=== PATIENT | male | born 1975 | race Caucasian/White ===

== ENCOUNTER 2018-11-05 12:01 | Day surgery (SDC) | payer BC ==
[~2018-11-05 12:01] MED LIST: Buffered Lidocaine 0.9% SYRIN* 5 ML/SYR SYRINGE INTRADERM ONE
[2018-11-05] MEDS ORDERED: ceFAZolin 2 GM PREMIX in ORs 2 GM/50 ML BAG IVPB ONE (13:05)
[2018-11-05] MEDS ORDERED: Bupivacaine 0.25% SDV PF* 10 ML VIAL INJ ONE (14:06)
[2018-11-05] MEDS ORDERED: Sodium Citrate/Citric Acid* 15 ML UDC ONE (14:45)
[2018-11-05] MEDS ORDERED: Midazolam* 1 MG/ML 2 ML VIAL (2 MG) ONE (14:48)
[2018-11-05] MEDS ORDERED: fentaNYL* 50 MCG/ML 2 ML VIAL (100 MCG VIAL) ONE (14:48)
[2018-11-05] MEDS ORDERED: Lidocaine 2% PF * 5 ML VIAL ONE (14:48)
[2018-11-05] MEDS ORDERED: Propofol* 10 MG/ML 20 ML BTL ONE (14:48)
[2018-11-05] MEDS ORDERED: fentaNYL* 50 MCG/ML 2 ML VIAL (100 MCG VIAL) IV PRN (15:35)
[2018-11-05] MEDS ORDERED: Naloxone* 0.4 MG/ML 1 ML VIAL IV PRN (15:35)
[2018-11-05] MEDS ORDERED: Ondansetron INJ* 2 MG/ML VIAL IV PRN (15:35)
[2018-11-05] MEDS ORDERED: Dexamethasone IV* 4 MG/ML 1 ML (4 MG) ONE (15:36)
[2018-11-05] MEDS ORDERED: Metoprolol Succinate XL TAB* 25 MG PO ONE (17:00)
[2018-11-05 17:02] VITALS: BP 123/77
--- NOTE | 2018-11-06 04:38 | OP ---
DATE OF OPERATION: 11/05/18 - [facility] DATE OF : 75 SURGEON: Kamlesh Sheldon MD SPECIAL EDUCATION RESOURCE TEACHER: SUMEET Gasca. An tourist information assistant was needed for the procedure to aid in positioning of the arm and retraction. ANESTHESIOLOGIST: Dr. Carvalho. ANESTHESIA: General. PRE-OP DIAGNOSIS: 1. Left cubital tunnel syndrome. 2. Left carpal tunnel syndrome. POST-OP DIAGNOSIS: 1. Left cubital tunnel syndrome. 2. Left carpal tunnel syndrome. OPERATIVE PROCEDURE: 1. Left in situ cubital tunnel release. 2. Left carpal tunnel release. INDICATIONS: Juan has pretty significant pain related to the ulnar nerve. This was confirmed on electrodiagnostic studies as well as here patient appearing carpal tunnel on this study. We talked about risks and benefits and he had wanted to proceed with surgery. He understands there is a risk he would still have pain and discomfort despite surgery. ESTIMATED BLOOD LOSS: 2 mL. COMPLICATIONS: None. FINDINGS: See above and below. DESCRIPTION OF PROCEDURE: Juan was seen in the preoperative holding area. The correct side, site and procedure were identified. We came back to the operating room. The arm was prepped and draped in the usual fashion. A time- out was performed. The arm was exsanguinated with the Esmarch and the tourniquet inflated to 250 mmHg. I made a 2 to 3 cm incision in the proximal palm in the typical location for an open carpal tunnel release. Dissection was carried down through the subcutaneous tissue and herrera fascia. The transverse carpal ligament was released just off the radial aspect of the hook of the hamate. The release just carried out from distal to proximal. When I got proximal, I released the subcutaneous tissue and retracted that with a Vicky retractor and then the remainder of the transverse carpal ligament and distal antebrachial fascia was released with the tenotomy scissors under direct visualization. The decompression was then checked and was looking good proximally and distally so we irrigated out the wound. The skin was closed with 4-0 nylon suture. The arm was then abducted and externally rotated. I began by making a curvilinear incisions centered over Bertrand's ligament. Dissection was carried down through the subcutaneous tissue. The total incision was 8 cm. The medial antebrachial cutaneous nerve was identified proximally and protected throughout the procedure. I crossed to more posterior position actually fairly proximally. The full thickness flaps were raised off of the fascia and off of Bertrand's ligament. I then began decompression just proximal to the cubital tunnel with the fascia overlying the ulnar nerve was opened up. The release was carried out proximally past the arcade of [place]. I then came distally and released Bertrand's ligament, then the superficial FCU fascia followed by splitting the two heads of the FCU and then releasing the subfascial layer. The motor branches of the ulnar nerve were identified and protected. The nerve was then checked for stability throughout full range of motion. There was absolutely no subluxation, so I again checked for hemostasis with the Bovie cautery. The subcutaneous tissue was then reapproximated with a couple of 3-0 Vicryl sutures and the skin was closed with 3-0 Monocryl and Steri-Strips. A 0.25% plain Marcaine was then infiltrated all around both operative areas. Soft dressings were applied including couple of ABDs at the elbow for some compression. Tourniquet was deflated and he was taken to the recovery room in stable condition. [id number]/[facility] #: [id number] VICKY
== END 2018-11-05 17:22 | disposition home or self-care (01) ==
LOC: OR 12:01
PROVIDERS: ATTEND Orthopaedic Surgery Hand Surgery
DX: G56.22 Lesion of ulnar nerve, left upper limb (principal); G56.02 Carpal tunnel syndrome, left upper limb; I11.9 Hypertensive heart disease without heart failure; M19.90 Unspecified osteoarthritis, unspecified site; K21.9 Gastro-esophageal reflux disease without esophagitis; F17.210 Nicotine dependence, cigarettes, uncomplicated
CPT/HCPCS: A9270-GY; J0690; J1100; J2250; J2704; J3010; J3490

== ENCOUNTER 2019-05-06 06:40 | Day surgery (SDC) | payer BC ==
[~2019-05-06 06:40] MED LIST changes: -Buffered Lidocaine 0.9% SYRIN* 5 ML/SYR SYRINGE INTRADERM ONE; +Buffered Lidocaine 1% SYRIN* 1 ML/SYRINGE INTRADERM ONE; +Famotidine IV* 10 MG/ML 2 ML (20 mg) IV ONE; +Lactated Ringers 1000 ML Bag* 1,000 ML IV SCH
[2019-05-06] MEDS ORDERED: Famotidine IV* 10 MG/ML 2 ML (20 mg) ONE (07:07)
[2019-05-06] MEDS ORDERED: ceFAZolin 2 GM PREMIX in ORs 2 GM/50 ML BAG ONE (07:07)
[2019-05-06] MEDS ORDERED: Bupivacaine 0.25% SDV PF* 10 ML VIAL INJ ONE (07:50)
[2019-05-06] MEDS ORDERED: fentaNYL* 50 MCG/ML 2 ML VIAL (100 MCG VIAL) ONE (10:08)
[2019-05-06] MEDS ORDERED: Midazolam* 1 MG/ML 5 ML VIAL (5 MG) ONE (10:08)
[2019-05-06] MEDS ORDERED: Lidocaine 2% PF * 5 ML VIAL ONE (11:15)
[2019-05-06] MEDS ORDERED: Ketorolac INJ* 30 MG/ML 1 ML VIAL ONE (11:15)
[2019-05-06] MEDS ORDERED: Ondansetron INJ* 2 MG/ML VIAL ONE (11:15)
[2019-05-06] MEDS ORDERED: Propofol* 10 MG/ML 20 ML BTL ONE (11:15)
[2019-05-06] MEDS ORDERED: DiMENhydriNATE IV* 50 MG/ML VIAL ONE (11:15)
[2019-05-06] MEDS ORDERED: Dexamethasone IV* 4 MG/ML 1 ML (4 MG) ONE (11:15)
[2019-05-06] MEDS ORDERED: oxyCODONE TAB* 5 MG TAB PO PRN (11:47)
[2019-05-06] MEDS ORDERED: DiMENhydriNATE IV* 50 MG/ML VIAL IV PUSH PRN (11:47)
[2019-05-06] MEDS ORDERED: HYDROmorphone INJ1* 1 MG/ML SYRINGE IV PRN (11:47)
[2019-05-06] MEDS ORDERED: Naloxone* 0.4 MG/ML 1 ML VIAL IV PRN (11:47)
[2019-05-06] MEDS ORDERED: Acetaminophen TAB* 325 MG PO PRN (11:47)
[2019-05-06 12:32] VITALS: BP 132/88
--- NOTE | 2019-05-06 12:38 | OP ---
DATE OF OPERATION: 05/06/19 - [facility] DATE OF : 75 SURGEON: Kamlesh Sheldon MD. ASSEMBLY LINE DRIVER: SUMEET Gasca. ANESTHESIOLOGIST: Dr. Walker. ANESTHESIA: General. PRE-OP DIAGNOSIS: Left cubital tunnel syndrome. POST-OP DIAGNOSIS: Left cubital tunnel syndrome. OPERATIVE PROCEDURE: Left in situ cubital tunnel release. INDICATIONS: Juan has done very well with the right-sided carpal and cubital tunnel releases. He is having problems on the left only in the ring and small fingers. We talked about the risk and benefits and he wanted to proceed with cubital tunnel release. ESTIMATED BLOOD LOSS: 2 mL. COMPLICATIONS: None. FINDINGS: See above and below. DESCRIPTION OF PROCEDURE: Juan was seen in the preoperative holding area. The correct site, side, and procedure were identified. We came back to the operating room where the arm was prepped and draped in the usual fashion and time-out was performed. The arm was exsanguinated with the Esmarch and the tourniquet was inflated to 250 mmHg. I made a curvilinear incision centered over the cubital tunnel. Dissection was carried down and the medial antebrachial cutaneous nerve was identified and protected throughout the surgery. The decompression was just proximal to Bertrand's ligament. I went ahead and released the entirety of Bertrand's ligament and then released the fascia overlying the two heads of the FCU. The two heads of the FCU were split and the subfascial layer was released. I then came proximally and placed an appendiceal retractor. I released the entirety of the fascia overlying the ulnar nerve past arcade of [place]. The medial intermuscular septum was released and a portion of it was excised as it was quite prominent. I went ahead and checked the decompression, everything was looking good. Hemostasis was obtained with the Bovie. The wound was irrigated out. There was no subluxation, so there was no need to transpose the nerve. The subcutaneous tissue was reapproximated with 3- 0 Vicryl. The skin was closed with 3-0 Monocryl and Steri-Strips. A 0.25% Marcaine was placed and soft dressing was applied to the elbow. He was taken to the recovery room in stable condition. [id number]/[facility] #: [id number] [facility]ENTER[facility]axa
== END 2019-05-06 12:55 | disposition home or self-care (01) ==
LOC: OR 06:40
PROVIDERS: ATTEND Orthopaedic Surgery Hand Surgery
DX: G56.21 Lesion of ulnar nerve, right upper limb (principal); Z72.0 Tobacco use; I42.2 Other hypertrophic cardiomyopathy; K21.9 Gastro-esophageal reflux disease without esophagitis; G47.33 Obstructive sleep apnea (adult) (pediatric); I34.0 Nonrheumatic mitral (valve) insufficiency
CPT/HCPCS: J0690; J1100; J1240; J1885; J2250; J2405; J2704; J3010; J3490